=== PATIENT | female | born 1955 | race Caucasian/White ===

== ENCOUNTER 2020-12-11 07:57 | Outpatient (CLI) | payer OTHER ==
[2020-12-11 08:38] LABS: ALBUMIN 3.6 g/dL (3.4-4.8); CALCIUM 9.1 mg/dL (8.4-11.0); CREATININE 0.99 mg/dL (0.55-1.30); POTASSIUM 4.5 mmol/L (3.5-5.1); TOTAL BILIRUBIN 0.4 mg/dL (0.0-1.0); URIC ACID 4.2 mg/dL (2.4-7.0)
[2020-12-11 08:38] LABS: BILIRUBIN,URINE NEGATIVE (NEGATIVE); BLOOD, URINE NEGATIVE (NEGATIVE); CLARITY/URINE CLEAR (CLEAR); COLOR,URINE YELLOW (YELLOW); GLUCOSE,URINE NEGATIVE (NEGATIVE); KETONES,URINE NEGATIVE (NEGATIVE); LEUKOCYTE ESTERASE ,URINE NEGATIVE (NEGATIVE); NITRITE, URINE NEGATIVE (NEGATIVE); PROTEIN URINE NEGATIVE (NEGATIVE); UROBILINOGEN,URINE 0.2 (0.2-1.0)
[2020-12-11 08:52] LABS: BASOPHILS % (AUTO) 1.4 % (0.0-2.0); EOSINOPHILS # (AUTO) 0.1 K/uL (0.0-0.4); EOSINOPHILS % (AUTO) 2.5 % (0.0-4.0); HEMATOCRIT 38.6 % (36-48); HEMOGLOBIN 13.5 g/dL (12.0-16.0); LYMPHOCYTES # (AUTO) 0.8 K/uL (1.0-5.5); LYMPHOCYTES % (AUTO) 26.3 % (20.5-51.5); MEAN CORPUSCULAR HEMOGLOBIN 32 pg (27-31); MEAN CORPUSCULAR HGB CONC 35 % (32-36); MEAN CORPUSCULAR VOLUME 90 fL (79.0-98.0); MONOCYTES # (AUTO) 0.3 K/uL (0.0-1.0); MONOCYTES % (AUTO) 8.3 % (1.7-9.3); NEUTROPHILS # (AUTO) 1.8 K/uL (1.8-7.7); NEUTROPHILS % (AUTO) 61.5 % (40.0-70.0); PLATELET COUNT (AUTO) 235 K/uL (130-430); RED BLOOD CELL COUNT(AUTO) 4.27 MIL/uL (4.2-6.2); RED CELL DISTRIBUTION WIDTH 12.4 % (9.0-15.0)
[2020-12-11 09:20] LABS: THYROID STIMULATING HORMONE 6.42 uIu/mL (0.36-3.74)
[2020-12-12 10:06] LABS: HEMOGLOBIN A1C 5.4 % (4.8-5.6)
== END 2020-12-11 19:02 | disposition home or self-care (01) ==
LOC: SLB 07:57
PROVIDERS: ATTEND Internal Medicine
DX: I10 Essential (primary) hypertension (principal); E78.5 Hyperlipidemia, unspecified; E56.8 Deficiency of other vitamins
CPT/HCPCS: 36415; 80053; 80061; 81003; 82306; 82607; 83036; 84443; 84550; 85025

== ENCOUNTER 2021-02-19 12:24 | Outpatient (CLI) | payer OTHER | END 2021-02-19 20:11 | disposition home or self-care (01) | LOC: SMI 12:24 | PROVIDERS: ATTEND Internal Medicine | DX: M47.812 Spondylosis without myelopathy or radiculopathy, cervical region (principal); M50.31 Other cervical disc degeneration, high cervical region; M48.02 Spinal stenosis, cervical region; M89.38 Hypertrophy of bone, other site | CPT/HCPCS: 72141 ==

== ENCOUNTER → 2021-03-10 | Outpatient (CLI) | payer OTHER ==
[2021-03-10 09:50] LABS: BASOPHILS % (AUTO) 1.2 % (0.0-2.0); EOSINOPHILS # (AUTO) 0.2 K/uL (0.0-0.4); EOSINOPHILS % (AUTO) 6.7 % (0.0-4.0); HEMATOCRIT 37.1 % (36-48); HEMOGLOBIN 12.9 g/dL (12.0-16.0); LYMPHOCYTES # (AUTO) 0.8 K/uL (1.0-5.5); LYMPHOCYTES % (AUTO) 31.4 % (20.5-51.5); MEAN CORPUSCULAR HEMOGLOBIN 31 pg (27-31); MEAN CORPUSCULAR HGB CONC 35 % (32-36); MEAN CORPUSCULAR VOLUME 88 fL (79.0-98.0); MONOCYTES # (AUTO) 0.2 K/uL (0.0-1.0); NEUTROPHILS # (AUTO) 1.4 K/uL (1.8-7.7); NEUTROPHILS % (AUTO) 53.7 % (40.0-70.0); PLATELET COUNT (AUTO) 237 K/uL (130-430); RED BLOOD CELL COUNT(AUTO) 4.22 MIL/uL (4.2-6.2); RED CELL DISTRIBUTION WIDTH 11.8 % (9.0-15.0); WHITE BLOOD COUNT (AUTO) 2.7 K/uL (4.8-10.8)
[2021-03-10 11:26] LABS: CALCIUM 8.8 mg/dL (8.4-11.0); CREATININE 0.92 mg/dL (0.55-1.30); POTASSIUM 4.3 mmol/L (3.5-5.1); THYROID STIMULATING HORMONE 0.04 uIu/mL (0.34-4.82)
== END | disposition home or self-care (01) ==
LOC: SLB 08:17
PROVIDERS: ATTEND Internal Medicine
DX: E03.9 Hypothyroidism, unspecified (principal); E78.5 Hyperlipidemia, unspecified
CPT/HCPCS: 36415; 80048; 80061; 84443; 85025

== ENCOUNTER 2021-03-12 16:02 | Outpatient (CLI) | payer OTHER ==
[2021-03-12 19:47] LABS: BILIRUBIN,URINE NEGATIVE (NEGATIVE); BLOOD, URINE NEGATIVE (NEGATIVE); CLARITY/URINE CLEAR (CLEAR); GLUCOSE,URINE NEGATIVE (NEGATIVE); KETONES,URINE NEGATIVE (NEGATIVE); LEUKOCYTE ESTERASE ,URINE NEGATIVE (NEGATIVE); NITRITE, URINE NEGATIVE (NEGATIVE); PROTEIN URINE NEGATIVE (NEGATIVE); UROBILINOGEN,URINE 0.2 (0.2-1.0)
[2021-03-12 20:06] LABS: COLOR,URINE STRAW (YELLOW)
== END 2021-03-12 21:37 | disposition home or self-care (01) ==
LOC: SLB 16:02
PROVIDERS: ATTEND Internal Medicine
DX: N39.0 Urinary tract infection, site not specified (principal)
CPT/HCPCS: 81003; 87086

== ENCOUNTER 2021-05-07 07:10 | Day surgery (SDC) | payer OTHER, SELFPAY ==
[~2021-05-07] VITALS: Ht 152.4 cm; Wt 57.2 kg
[2021-05-07] MEDS ORDERED: MIDAZOLAM HCL 5 MG/5 ML VIAL ONE (07:49)
[2021-05-07] MEDS ORDERED: fentaNYL CITRATE/PF 100 MCG/2 ML AMP ONE (07:49)
[2021-05-07 12:50] VITALS: BP_SYST 107
== END 2021-05-07 12:48 | disposition home or self-care (01) ==
LOC: SDS 07:10 → SMU 07:10 → SDS 12:48
PROVIDERS: ATTEND Internal Medicine
DX: Z12.11 Encounter for screening for malignant neoplasm of colon (principal); K64.8 Other hemorrhoids; Z20.822 Contact with and (suspected) exposure to COVID-19
CPT/HCPCS: 36415; 45378; 87426; 99152; G0378; J2250; J3010; U0003

== ENCOUNTER 2021-05-25 08:17 | Outpatient (CLI) | payer OTHER ==
[2021-05-25 09:49] LABS: BASOPHILS % (AUTO) 1.3 % (0.0-2.0); EOSINOPHILS # (AUTO) 0.2 K/uL (0.0-0.4); EOSINOPHILS % (AUTO) 4.5 % (0.0-4.0); HEMATOCRIT 41.2 % (36-48); HEMOGLOBIN 13.9 g/dL (12.0-16.0); LYMPHOCYTES % (AUTO) 26.3 % (20.5-51.5); MEAN CORPUSCULAR HEMOGLOBIN 30 pg (27-31); MEAN CORPUSCULAR HGB CONC 34 % (32-36); MEAN CORPUSCULAR VOLUME 88 fL (79.0-98.0); MONOCYTES # (AUTO) 0.2 K/uL (0.0-1.0); MONOCYTES % (AUTO) 6.4 % (1.7-9.3); NEUTROPHILS # (AUTO) 2.2 K/uL (1.8-7.7); NEUTROPHILS % (AUTO) 61.5 % (40.0-70.0); PLATELET COUNT (AUTO) 246 K/uL (130-430); RED BLOOD CELL COUNT(AUTO) 4.66 MIL/uL (4.2-6.2); RED CELL DISTRIBUTION WIDTH 12.8 % (9.0-15.0); WHITE BLOOD COUNT (AUTO) 3.7 K/uL (4.8-10.8)
[2021-05-25 10:47] LABS: ALBUMIN 3.9 g/dL (3.4-4.8); CALCIUM 9.6 mg/dL (8.4-11.0); CREATININE 0.84 mg/dL (0.55-1.30); POTASSIUM 4.4 mmol/L (3.5-5.1); THYROID STIMULATING HORMONE 4.75 uIu/mL (0.36-3.74); TOTAL BILIRUBIN 0.2 mg/dL (0.0-1.0)
== END 2021-05-25 21:03 | disposition home or self-care (01) ==
LOC: SLB 08:17
PROVIDERS: ATTEND Internal Medicine
DX: E03.9 Hypothyroidism, unspecified (principal); E78.5 Hyperlipidemia, unspecified; I10 Essential (primary) hypertension; E56.9 Vitamin deficiency, unspecified
CPT/HCPCS: 36415; 80053; 80061; 82306; 82607; 84443; 85025

== ENCOUNTER 2021-08-30 08:11 | Outpatient (CLI) | payer OTHER ==
[2021-08-30 09:18] LABS: FREE T4 (FREE THYROXINE) 1.2 ng/dl (0.8-1.5); THYROID STIMULATING HORMONE 1.79 uIu/mL (0.36-3.74)
== END 2021-08-30 19:28 | disposition home or self-care (01) ==
LOC: SLB 08:11
PROVIDERS: ATTEND Internal Medicine
DX: E78.5 Hyperlipidemia, unspecified (principal); E03.9 Hypothyroidism, unspecified; E55.9 Vitamin D deficiency, unspecified
CPT/HCPCS: 36415; 80061; 82306; 84439; 84443; 86376

== ENCOUNTER 2021-10-01 11:49 | Outpatient (CLI) | payer OTHER | END 2021-10-01 19:54 | disposition home or self-care (01) | LOC: SCA 11:49 | PROVIDERS: ATTEND Internal Medicine | DX: I51.7 Cardiomegaly (principal); R94.31 Abnormal electrocardiogram [ECG] [EKG]; R55 Syncope and collapse | CPT/HCPCS: 93005; 93306 ==

== ENCOUNTER 2021-12-25 08:52 | Outpatient (CLI) | payer OTHER ==
[2021-12-25 10:01] LABS: BASOPHILS % (AUTO) 1.1 % (0.0-2.0); EOSINOPHILS # (AUTO) 0.1 K/uL (0.0-0.4); EOSINOPHILS % (AUTO) 2.3 % (0.0-4.0); HEMATOCRIT 41.8 % (36-48); HEMOGLOBIN 13.9 g/dL (12.0-16.0); LYMPHOCYTES # (AUTO) 0.9 K/uL (1.0-5.5); LYMPHOCYTES % (AUTO) 30.2 % (20.5-51.5); MEAN CORPUSCULAR HEMOGLOBIN 30 pg (27-31); MEAN CORPUSCULAR HGB CONC 33 % (32-36); MEAN CORPUSCULAR VOLUME 90 fL (79.0-98.0); MONOCYTES # (AUTO) 0.2 K/uL (0.0-1.0); MONOCYTES % (AUTO) 7.6 % (1.7-9.3); NEUTROPHILS # (AUTO) 1.7 K/uL (1.8-7.7); NEUTROPHILS % (AUTO) 58.8 % (40.0-70.0); PLATELET COUNT (AUTO) 269 K/uL (130-430); RED BLOOD CELL COUNT(AUTO) 4.66 MIL/uL (4.2-6.2); RED CELL DISTRIBUTION WIDTH 12.9 % (9.0-15.0)
[2021-12-25 10:07] LABS: WHITE BLOOD COUNT (AUTO) 2.9 K/uL (4.8-10.8)
[2021-12-25 10:21] LABS: BILIRUBIN,URINE NEGATIVE (NEGATIVE); BLOOD, URINE NEGATIVE (NEGATIVE); CLARITY/URINE CLEAR (CLEAR); COLOR,URINE YELLOW (YELLOW); GLUCOSE,URINE NEGATIVE (NEGATIVE); KETONES,URINE NEGATIVE (NEGATIVE); LEUKOCYTE ESTERASE ,URINE NEGATIVE (NEGATIVE); NITRITE, URINE NEGATIVE (NEGATIVE); PH,URINE 8.5 (5.0-8.0); PROTEIN URINE NEGATIVE (NEGATIVE); UROBILINOGEN,URINE 0.2 (0.2-1.0)
[2021-12-25 10:23] LABS: CREATININE 0.96 mg/dL (0.55-1.30); POTASSIUM 4.2 mmol/L (3.5-5.1); THYROID STIMULATING HORMONE 2.48 uIu/mL (0.34-4.82); TOTAL BILIRUBIN 0.4 mg/dL (0.0-1.0)
[2021-12-26 08:06] LABS: HEMOGLOBIN A1C 5.5 % (4.8-5.6)
== END 2021-12-25 17:36 | disposition home or self-care (01) ==
LOC: SLB 08:52
PROVIDERS: ATTEND Internal Medicine
DX: Z12.31 Encounter for screening mammogram for malignant neoplasm of breast (principal); I10 Essential (primary) hypertension; E03.9 Hypothyroidism, unspecified; R73.9 Hyperglycemia, unspecified; E55.9 Vitamin D deficiency, unspecified; E56.9 Vitamin deficiency, unspecified
CPT/HCPCS: 36415; 77067; 80053; 80061; 81003; 82306; 82607; 83036; 83735; 84443; 85025

== ENCOUNTER 2022-01-08 09:39 | Outpatient (CLI) | payer OTHER | END 2022-01-08 20:08 | disposition home or self-care (01) | LOC: SUS 09:39 | PROVIDERS: ATTEND Internal Medicine | DX: R94.4 Abnormal results of kidney function studies (principal) | CPT/HCPCS: 76770 ==

== ENCOUNTER → 2022-04-19 | Outpatient (CLI) | payer OTHER ==
[2022-04-19 09:22] LABS: BILIRUBIN,URINE NEGATIVE (NEGATIVE); BLOOD, URINE NEGATIVE (NEGATIVE); CLARITY/URINE CLEAR (CLEAR); COLOR,URINE YELLOW (YELLOW); GLUCOSE,URINE NEGATIVE (NEGATIVE); KETONES,URINE NEGATIVE (NEGATIVE); LEUKOCYTE ESTERASE ,URINE NEGATIVE (NEGATIVE); NITRITE, URINE NEGATIVE (NEGATIVE); PROTEIN URINE NEGATIVE (NEGATIVE); UROBILINOGEN,URINE 0.2 (0.2-1.0)
[2022-04-19 09:51] LABS: ALBUMIN 3.9 g/dL (3.4-4.8); CALCIUM 9.5 mg/dL (8.4-11.0); CREATININE 0.76 mg/dL (0.55-1.30); FREE T4 (FREE THYROXINE) 1.1 ng/dL (0.6-1.6); THYROID STIMULATING HORMONE 2.73 uIu/mL (0.34-4.82); TOTAL BILIRUBIN 0.4 mg/dL (0.0-1.0)
[2022-04-19 10:23] LABS: BASOPHILS % (AUTO) 1.4 % (0.0-2.0); EOSINOPHILS # (AUTO) 0.2 K/uL (0.0-0.4); EOSINOPHILS % (AUTO) 5.3 % (0.0-4.0); HEMATOCRIT 38.1 % (36-48); HEMOGLOBIN 13.1 g/dL (12.0-16.0); LYMPHOCYTES # (AUTO) 1.1 K/uL (1.0-5.5); LYMPHOCYTES % (AUTO) 36.3 % (20.5-51.5); MEAN CORPUSCULAR HEMOGLOBIN 31 pg (27-31); MEAN CORPUSCULAR HGB CONC 34 % (32-36); MEAN CORPUSCULAR VOLUME 90 fL (79.0-98.0); MONOCYTES # (AUTO) 0.2 K/uL (0.0-1.0); MONOCYTES % (AUTO) 6.9 % (1.7-9.3); NEUTROPHILS # (AUTO) 1.5 K/uL (1.8-7.7); NEUTROPHILS % (AUTO) 50.1 % (40.0-70.0); PLATELET COUNT (AUTO) 261 K/uL (130-430); RED BLOOD CELL COUNT(AUTO) 4.23 MIL/uL (4.2-6.2); RED CELL DISTRIBUTION WIDTH 12.3 % (9.0-15.0)
== END | disposition home or self-care (01) ==
LOC: SLB 08:29
PROVIDERS: ATTEND Internal Medicine
DX: Z00.00 Encounter for general adult medical examination without abnormal findings (principal); I10 Essential (primary) hypertension; E78.5 Hyperlipidemia, unspecified; R73.9 Hyperglycemia, unspecified; E03.9 Hypothyroidism, unspecified
CPT/HCPCS: 36415; 80053; 80061; 81003; 82306; 83037; 83735; 84439; 84443; 85025

== ENCOUNTER 2022-08-29 05:13 | Emergency (ER) | payer OTHER ==
[~2022-08-29] VITALS: Ht 152.4 cm; Wt 59.9 kg
[2022-08-29 05:23] VITALS: BP_SYST 138
[2022-08-29] MEDS ORDERED: KETOROLAC TROMETHAMINE 60 MG/2 ML VIAL IM ONE (06:30)
[2022-08-29] MEDS ORDERED: ONDANSETRON 4 MG ODT TAB PO ONE (06:30)
[2022-08-29 07:09] LABS: BASOPHILS % (AUTO) 0.8 % (0.0-2.0); EOSINOPHILS # (AUTO) 0.2 K/uL (0.0-0.4); EOSINOPHILS % (AUTO) 3.7 % (0.0-4.0); HEMATOCRIT 41.2 % (36-48); HEMOGLOBIN 14.1 g/dL (12.0-16.0); LYMPHOCYTES % (AUTO) 25.1 % (20.5-51.5); MEAN CORPUSCULAR HEMOGLOBIN 31 pg (27-31); MEAN CORPUSCULAR HGB CONC 34 % (32-36); MEAN CORPUSCULAR VOLUME 91 fL (79.0-98.0); MONOCYTES # (AUTO) 0.3 K/uL (0.0-1.0); MONOCYTES % (AUTO) 6.5 % (1.7-9.3); NEUTROPHILS # (AUTO) 2.6 K/uL (1.8-7.7); NEUTROPHILS % (AUTO) 63.9 % (40.0-70.0); PLATELET COUNT (AUTO) 255 K/uL (130-430); RED BLOOD CELL COUNT(AUTO) 4.52 MIL/uL (4.2-6.2); RED CELL DISTRIBUTION WIDTH 12.5 % (9.0-15.0); WHITE BLOOD COUNT (AUTO) 4.1 K/uL (4.8-10.8)
[2022-08-29 07:22] LABS: ALANINE AMINOTRANSFERASE 26 U/L (12-78); ALBUMIN 4.1 g/dL (3.4-4.8); ANION GAP 5 (5-15); ASPARTATE AMINOTRANSFERASE 25 U/L (10-37); CALCIUM 9.1 mg/dL (8.4-11.0); CHLORIDE 102 mmol/L (98-107); GFR AFRICAN AMERICAN 81 mL/min (>90); GLUCOSE 108 mg/dL (70-99); TOTAL BILIRUBIN 0.4 mg/dL (0.0-1.0); UREA NITROGEN, BLOOD 11 mg/dL (8-21)
[2022-08-29 07:25] LABS: C-REACTIVE PROTEIN QUANT < 0.2 mg/dL (0-0.5)
[2022-08-29 07:34] LABS: ERYTHROCYTE SEDIMENTATION RATE 8 MM/HR (0-20)
[2022-08-29 07:37] VITALS: BP_SYST 138
[2022-08-29] MEDS ORDERED: IBUP-1969 PO (09:18)
[2022-08-29] MEDS ORDERED: TRAM50TA2 PO (09:18)
== END 2022-08-29 10:00 | disposition home or self-care (01) ==
LOC: SED 05:13
DX: R51.9 Headache, unspecified (principal); M54.2 Cervicalgia; Z88.2 Allergy status to sulfonamides; Z88.5 Allergy status to narcotic agent; Z88.6 Allergy status to analgesic agent; Z88.8 Allergy status to other drugs, medicaments and biological substances; Z79.899 Other long term (current) drug therapy
CPT/HCPCS: 99285; 70450; 80053; 85025; 85651; 86140; 36415; 76376; 96372; Q0162; J1885

== ENCOUNTER 2022-08-31 10:10 | Inpatient (IN) | payer OTHER ==
[~2022-08-31] VITALS: Ht 167.6 cm; Wt 59.9 kg
[~2022-08-31 10:10] MED LIST: IBUP-1969 PO; TRAM50TA2 PO
[2022-08-31 10:51] VITALS: BP_SYST 176
[2022-08-31] MEDS ORDERED: ONDANSETRON 4 MG ODT TAB PO ONE ×2 (11:00→12:00)
[2022-08-31 11:21] LABS: BASOPHILS % (AUTO) 0.2 % (0.0-2.0); EOSINOPHILS % (AUTO) 0.1 % (0.0-4.0); HEMATOCRIT 38.6 % (36-48); HEMOGLOBIN 13.5 g/dL (12.0-16.0); LYMPHOCYTES # (AUTO) 0.8 K/uL (1.0-5.5); LYMPHOCYTES % (AUTO) 12.5 % (20.5-51.5); MEAN CORPUSCULAR HEMOGLOBIN 31 pg (27-31); MEAN CORPUSCULAR HGB CONC 35 % (32-36); MEAN CORPUSCULAR VOLUME 89 fL (79.0-98.0); MONOCYTES # (AUTO) 0.2 K/uL (0.0-1.0); MONOCYTES % (AUTO) 3.3 % (1.7-9.3); NEUTROPHILS # (AUTO) 5.6 K/uL (1.8-7.7); NEUTROPHILS % (AUTO) 83.9 % (40.0-70.0); PLATELET COUNT (AUTO) 252 K/uL (130-430); RED BLOOD CELL COUNT(AUTO) 4.35 MIL/uL (4.2-6.2); RED CELL DISTRIBUTION WIDTH 12.2 % (9.0-15.0); WHITE BLOOD COUNT (AUTO) 6.7 K/uL (4.8-10.8)
[2022-08-31 11:42] LABS: ANION GAP 8 (5-15); CALCIUM 9.1 mg/dL (8.4-11.0); CHLORIDE 89 mmol/L (98-107); CREATININE 0.72 mg/dL (0.55-1.30); GFR AFRICAN AMERICAN 105 mL/min (>90); GLUCOSE 116 mg/dL (70-99); UREA NITROGEN, BLOOD 7 mg/dL (8-21)
[2022-08-31 11:54] LABS: ALANINE AMINOTRANSFERASE 13 U/L (12-78); ALBUMIN 4.3 g/dL (3.4-4.8); AMYLASE 53 U/L (0-100); ASPARTATE AMINOTRANSFERASE 22 U/L (10-37); LACTATE DEHYDROGENASE 211 U/L (81-234); LIPASE 90 U/L (73-393); TOTAL BILIRUBIN 0.6 mg/dL (0.0-1.0)
[2022-08-31 11:59] LABS: C-REACTIVE PROTEIN QUANT < 0.2 mg/dL (0-0.5)
--- NOTE | 2022-08-31 12:07 | NUR ---
Patient arrived to ED 6 for c/o vertigo and headache and vomiting three times. Yesterday she had nausea "all the time." Patient was here 3 days ago for dizziness and headache. Alert and oriented x4. Respiration even and unlabored. No shortness of breath. Will continue to monitor.
[2022-08-31] MEDS ORDERED: DIPHENHYDRAMINE INJ 50 MG/ML VIAL IM ONE (12:15)
[2022-08-31 12:29] LABS: ACETONE, SERUM NEGATIVE (NEGATIVE)
[2022-08-31] MEDS ORDERED: NACL 0.9% 1,000 ML IV ONE (12:45)
[2022-08-31] MEDS ORDERED: METOCLOPRAMIDE HCL 10 MG/2 ML VIAL IVP ONE (12:45)
[2022-08-31 12:50] LABS: BILIRUBIN,URINE NEGATIVE (NEGATIVE); CLARITY/URINE TURBID (CLEAR); COLOR,URINE YELLOW (YELLOW); GLUCOSE,URINE NEGATIVE (NEGATIVE); KETONES,URINE NEGATIVE (NEGATIVE); LEUKOCYTE ESTERASE ,URINE NEGATIVE (NEGATIVE); NITRITE, URINE NEGATIVE (NEGATIVE); PROTEIN URINE 1+ (NEGATIVE); UROBILINOGEN,URINE 0.2 (0.2-1.0)
[2022-08-31 12:52] LABS: BLOOD, URINE TRACE (NEGATIVE)
[2022-08-31 13:01] LABS: BACTERIA,URINE FEW /HPF (None Seen); RBC,URINE 0-3 /HPF (0-3); WBC,URINE 0-3 /HPF (0-3)
[2022-08-31 13:02] LABS: URINE AMORPHOUS PHOSPHATES 3+ /HPF (None Seen)
[2022-08-31 13:12] LABS: ACETONE, SERUM NEGATIVE (NEGATIVE)
--- NOTE | 2022-08-31 13:31 | NUR ---
Admit bed requested Patient will be admitted to care of . Admitted to Telemetry unit. Diagnosis Intractable Vomiting and Hyponatremia Inpatient (Yes or No) Yes Observation (Yes or No) No Orientation concerns or request close to nursing station (Yes or No) No Covid Status Negative On vent or bipap N/A Isolation requirements No Needs a sitter No From Home (Yes or if No enter name of facility) Yes Requires Dialysis (Yes or No) No Med Rec Completed (Yes of No) Yes
[2022-08-31 14:03] LABS: CALCIUM 9.1 mg/dL (8.4-11.0); CREATININE 0.74 mg/dL (0.55-1.30)
[2022-08-31] MEDS ORDERED: traMADol HCL HCL 50 MG TABLET (ULTRAM) PO PRN (17:00)
[2022-08-31] MEDS ORDERED: METOCLOPRAMIDE HCL 10 MG/2 ML VIAL IVP PRN (17:00)
[2022-08-31] MEDS ORDERED: ONDANSETRON HCL 4 MG/2 ML VIAL IVP PRN (17:00)
[2022-08-31 17:08] VITALS: BP_SYST 133
[2022-08-31 17:09] VITALS: BP_SYST 133
--- NOTE | 2022-08-31 17:10 | NUR ---
Report given to ADRY Rebolledo for continuity of care. Patient in stable condition.
[2022-08-31] MEDS: NACL 0.9% 1,000 ML IV SCH (17:18)
--- NOTE | 2022-08-31 17:21 | NUR ---
Patient arrived to room 111A for c/o nausea vomiting and vertigo. She is not vomiting or having nausea right now. She is alert and oriented x4. No deficits noted. Respiration even and unlabored. No c/o pain. Patient is able to rest. IV noted on right forearm. Vital signs stable. Will continue to monitor. Call light within reach.
--- NOTE | 2022-08-31 17:27 | NUR ---
Dr. kincaid at bedside.
--- NOTE | 2022-08-31 17:30 | NUR ---
ADMIT TO UNIT PATIENT IS AOX4. AMBULATORY WITH STEADY GAIT. PATIENT'S BREATHING IS EVEN AND NONLABORED, ON ROOM AIR. NO SS OF DISTRESS NOTED. PATIENT DENIES PAIN. NO SS OF NAUSEA AND/ EMESIS AT THIS TIME. IV PATENT. NO SS OF INFILTRATION NOTED. VITAL SIGNS OBTAINED AT THIS TIME. PATIENT ORIENTED TO ROOM AND USE OF CALL LIGHT. DR. TYSON AT BEDSIDE. PATIENT STABLE. BED IS LOCKED, ALARM ON, AND AT LOWEST POSITION. CALL LIGHT WITHIN REACH.
[2022-08-31] MEDS ORDERED: SODIUM CHLORIDE 500 MG TABLET PO ONE (17:45)
[2022-08-31] MEDS ORDERED: cloNIDine HCL 0.1 MG TABLET PO PRN (18:15)
--- NOTE | 2022-08-31 18:51 | NUR ---
CLOSING NOTES PATIENT IS EATING DINNER, FULL LIQUIDS. TOLERATING WELL. DENIES ANY NAUSEA OR EMESIS AT THIS TIME. DENIES PAIN. BREATHING IS EVEN AND NONLABORED, ON ROOM AIR. NO SOB NOTED. NO SS OF DISTRESS NOTED. PATIENT IS STABLE. ALL NEEDS MET. IV PATENT. ALL SAFETY PRECAUTIONS IN PLACE AND CALL LIGHT WITHIN REACH.
[2022-08-31 20:00] VITALS: BP_SYST 118; BP_SYST 125
--- NOTE | 2022-08-31 20:00 | NUR ---
OPENING NOTES PATIENT IS LYING IN BED AXO 4 WITH NO S/S OF DISTRESS OR DISCOMFORT. BREATHING IS EQUAL AND UNLABORED ON RA. SAFETY CHECKS ARE DONE AND CALL LIGHT WITH IN REACH.
[2022-08-31] MEDS: SODIUM CHLORIDE 500 MG TABLET PO SCH (21:02)
[2022-08-31] MEDS: FAMOTIDINE PF 20 MG/2 ML VIAL IVP SCH (21:38)
[2022-09-01 00:05] VITALS: BP_SYST 114
--- NOTE | 2022-09-01 03:25 | NUR ---
ROUNDS PATIENT IS ASLEEP IN BED WITH NO S/S OF DISTRESS OR DISCOMFORT. BREATHING IS EQUAL AND UNLABORED. IVF ARE RUNNING. SAFETY CHECKS ARE DONE. WILL CONTINUE TO MONITOR.
[2022-09-01] MEDS: NACL 0.9% 1,000 ML IV SCH ×2 (03:44→14:08)
--- NOTE | 2022-09-01 04:55 | NUR ---
ROUNDS PATIENT IS LYING IN BED AXO4 WITH NO S/S OF DISTRESS OR DISCOMFORT. PATIENT STATED THAT SHE STARTED FEELING A HEADACHE AROUND 0330 THIS MORNING. PATIENT SAID SHE FEELS BETTER NOW BUT WANTED TO MAKE SURE IT IS REITERATED THAT SHE HERE FOR SAID HEADACHE.
[2022-09-01 06:09] LABS: BASOPHILS % (AUTO) 0.5 % (0.0-2.0); EOSINOPHILS % (AUTO) 0.6 % (0.0-4.0); HEMATOCRIT 34.5 % (36-48); LYMPHOCYTES # (AUTO) 1.4 K/uL (1.0-5.5); LYMPHOCYTES % (AUTO) 36.6 % (20.5-51.5); MEAN CORPUSCULAR HEMOGLOBIN 31 pg (27-31); MEAN CORPUSCULAR HGB CONC 35 % (32-36); MEAN CORPUSCULAR VOLUME 90 fL (79.0-98.0); MONOCYTES # (AUTO) 0.4 K/uL (0.0-1.0); MONOCYTES % (AUTO) 9.6 % (1.7-9.3); NEUTROPHILS # (AUTO) 2.1 K/uL (1.8-7.7); NEUTROPHILS % (AUTO) 52.7 % (40.0-70.0); PLATELET COUNT (AUTO) 243 K/uL (130-430); RED BLOOD CELL COUNT(AUTO) 3.85 MIL/uL (4.2-6.2); RED CELL DISTRIBUTION WIDTH 12.5 % (9.0-15.0)
--- NOTE | 2022-09-01 06:41 | NUR ---
CLOSING NOTES PATIENT IS LYING IN BED AXO 4 WITH NO S/S OF DISTRESS OR DISCOMFORT. BREATHING IS EQUAL AND UNLABORED ON RA. PATIENT HAS SLEPT THROUGHOUT THE NIGHT. MRI PRE CHECK IS DONE. ALL NEEDS ARE MET AT THIS TIME. SAFETY CHECKS ARE DONE AND CALL LIGHT WITH IN REACH.
[2022-09-01 06:47] LABS: ALBUMIN 3.2 g/dL (3.4-4.8); CALCIUM 8.2 mg/dL (8.4-11.0); CREATININE 0.79 mg/dL (0.55-1.30); FREE T4 (FREE THYROXINE) 1.1 ng/dL (0.6-1.6); THYROID STIMULATING HORMONE 3.73 uIu/mL (0.34-4.82); TOTAL BILIRUBIN 0.4 mg/dL (0.0-1.0)
[2022-09-01 07:46] VITALS: BP_SYST 164
--- NOTE | 2022-09-01 08:00 | NUR ---
Initial notes Received patient awake in bed AAOx4,no c/opain/SOB , respiration unlabored,no signs of distress noted. IV to right forearm patent,no signs of distress noted. Safety precaution secured,bed in low position and call light w/in reached
[2022-09-01] MEDS: SODIUM CHLORIDE 500 MG TABLET PO SCH ×2 (08:13→15:49)
--- NOTE | 2022-09-01 08:15 | NUR ---
Medication administration: Patient found in bed, eating breakfast. No s/s of grimace or distress. Non labored breathing. Administered medication, tolerated well. Call light within reach, bed at lowest position and locked. Will continue to monitor throughout shift.
[2022-09-01] MEDS: FAMOTIDINE PF 20 MG/2 ML VIAL IVP SCH ×2 (08:16→22:21)
[2022-09-01 13:51] VITALS: BP_SYST 137
[2022-09-01] MEDS ORDERED: PEG 400/HYPROMELLOSE/GLYCERIN 15 ML DROPS OP ONE (17:30)
--- NOTE | 2022-09-01 18:16 | NUR ---
Closing Patient resting in bed, no signs of distress noted. IV to right forearm patent, safety precaution secured, bed in low position and call light w/in reached, will endorse
--- NOTE | 2022-09-01 18:28 | NUR ---
CONSULTATION: REASON FOR CONSULT: HYPONATREMIA CONSULTING PHYSICIAN: JEISON ORDERED BY: JAH REZA IS AWARE AND ALREADY SEEN PT
[2022-09-01 18:56] VITALS: BP_SYST 151
[2022-09-01 20:30] VITALS: BP_SYST 144
--- NOTE | 2022-09-01 21:35 | NUR ---
patient awake assist out of bed to rest room ambulates steady gait no SOB assist back to bed procedures explained call piña given to patient .
[2022-09-01] MEDS: PEG 400/HYPROMELLOSE/GLYCERIN 15 ML DROPS OP SCH (22:24)
--- NOTE | 2022-09-02 | NUR ---
patient is Resting this hour denies any nausea or GI upset this hour continue to monitor .
[2022-09-02 00:30] VITALS: BP_SYST 137
--- NOTE | 2022-09-02 03:49 | NUR ---
Hourly Rounding patient Resting is verbally Responsive chest movement symmetrical call piña given to patient / .
[2022-09-02 05:26] LABS: EOSINOPHILS # (AUTO) 0.1 K/uL (0.0-0.4); EOSINOPHILS % (AUTO) 2.2 % (0.0-4.0); HEMATOCRIT 32.7 % (36-48); HEMOGLOBIN 11.7 g/dL (12.0-16.0); LYMPHOCYTES # (AUTO) 1.4 K/uL (1.0-5.5); LYMPHOCYTES % (AUTO) 35.6 % (20.5-51.5); MEAN CORPUSCULAR HEMOGLOBIN 32 pg (27-31); MEAN CORPUSCULAR HGB CONC 36 % (32-36); MEAN CORPUSCULAR VOLUME 90 fL (79.0-98.0); MONOCYTES # (AUTO) 0.4 K/uL (0.0-1.0); MONOCYTES % (AUTO) 9.1 % (1.7-9.3); NEUTROPHILS # (AUTO) 2.1 K/uL (1.8-7.7); NEUTROPHILS % (AUTO) 52.1 % (40.0-70.0); PLATELET COUNT (AUTO) 231 K/uL (130-430); RED BLOOD CELL COUNT(AUTO) 3.65 MIL/uL (4.2-6.2); RED CELL DISTRIBUTION WIDTH 12.5 % (9.0-15.0)
[2022-09-02 05:44] LABS: CALCIUM 8.2 mg/dL (8.4-11.0); CREATININE 0.86 mg/dL (0.55-1.30)
--- NOTE | 2022-09-02 08:00 | NUR ---
Initial notes Received patient awake in bed AAOx4,no c/o pain/SOB , respiration unlabored,no signs of distress noted. IV to right forearm patent,no signs of distress noted. Safety precaution secured,bed in low position and call light w/in reached
[2022-09-02 08:04] VITALS: BP_SYST 157
[2022-09-02] MEDS: PEG 400/HYPROMELLOSE/GLYCERIN 15 ML DROPS OP SCH ×3 (10:11→21:03)
[2022-09-02] MEDS: FAMOTIDINE PF 20 MG/2 ML VIAL IVP SCH ×2 (10:12→21:01)
[2022-09-02 13:20] VITALS: BP_SYST 168
[2022-09-02 16:22] VITALS: BP_SYST 143
--- NOTE | 2022-09-02 18:55 | NUR ---
Patient resting in bed no signs of distress will endorse
[2022-09-02 20:10] VITALS: BP_SYST 144
--- NOTE | 2022-09-02 20:10 | NUR ---
Opening notes Pt AAOx4, ambulates to bathroom. VSS. Call lgiht within reach. Bed low, locked, siderails up x2. To monitor.
--- NOTE | 2022-09-02 21:25 | NUR ---
IV RE-INSERTION: Pt complaining of pain to Rt. forearm IV site. DC'd IV, catheter tip intact. Restarted on R. wrist 22G, good blood return. Successful after x1 attempt. Pt tolerated well.
[2022-09-03] VITALS (8 sets, daily range): BP systolic 137–186
--- NOTE | 2022-09-03 02:00 | NUR ---
Rounds/BP med Pt c/o headache and shakiness on her legs/arms. BP elevated 186/82 HR 67. Catapres 0.1mg PO given as needed. Encouraged pt to take slow deep breaths. Will re-check within an hour. Call light within reach.
--- NOTE | 2022-09-03 04:49 | NUR ---
CONSULTATION PAGED REASON FOR CONSULTATION: DYSPNEA WAS CONSULT CALLED? Y PERSON WHO WAS NOTIFIED: TOBIN CONSULTING PHYSICIAN: JESUS ASSISTANT BOYS TRACK COACH SPECIALTY: CARDIO ASSISTANT BOYS TRACK COACH PHONE NUMBER: [phone] REQUESTING PHYSICIAN: JAH
[2022-09-03 05:49] LABS: CALCIUM 8.8 mg/dL (8.4-11.0); CREATININE 0.88 mg/dL (0.55-1.30)
[2022-09-03 06:02] LABS: BASOPHILS % (AUTO) 0.6 % (0.0-2.0); EOSINOPHILS # (AUTO) 0.1 K/uL (0.0-0.4); EOSINOPHILS % (AUTO) 1.6 % (0.0-4.0); HEMATOCRIT 35.1 % (36-48); HEMOGLOBIN 12.3 g/dL (12.0-16.0); LYMPHOCYTES # (AUTO) 1.5 K/uL (1.0-5.5); LYMPHOCYTES % (AUTO) 24.8 % (20.5-51.5); MEAN CORPUSCULAR HEMOGLOBIN 31 pg (27-31); MEAN CORPUSCULAR HGB CONC 35 % (32-36); MEAN CORPUSCULAR VOLUME 89 fL (79.0-98.0); MONOCYTES # (AUTO) 0.4 K/uL (0.0-1.0); MONOCYTES % (AUTO) 7.5 % (1.7-9.3); NEUTROPHILS # (AUTO) 3.9 K/uL (1.8-7.7); NEUTROPHILS % (AUTO) 65.5 % (40.0-70.0); PLATELET COUNT (AUTO) 243 K/uL (130-430); RED BLOOD CELL COUNT(AUTO) 3.93 MIL/uL (4.2-6.2); RED CELL DISTRIBUTION WIDTH 12.6 % (9.0-15.0)
[2022-09-03 07:11] LABS: ERYTHROCYTE SEDIMENTATION RATE 3 MM/HR (0-20)
--- NOTE | 2022-09-03 07:30 | NUR ---
Initial note: report received from Krystyna. patient is awake alert x4. Call light in reach. Bed in the lowest position and side rails x2 up. No pain or discomfort at this time. Will continue patient care.
[2022-09-03] MEDS ORDERED: PROPRANOLOL HCL 10 MG TABLET (INDERAL) PO SCH (09:00)
[2022-09-03] MEDS ORDERED: PROPRANOLOL HCL (INDERAL LA 60MG) PO SCH (09:00)
[2022-09-03] MEDS ORDERED: LOSARTAN POTASSIUM 50 MG TABLET (COZAAR) PO SCH (09:00)
[2022-09-03] MEDS: FAMOTIDINE PF 20 MG/2 ML VIAL IVP SCH (09:09)
[2022-09-03] MEDS: PEG 400/HYPROMELLOSE/GLYCERIN 15 ML DROPS OP SCH ×3 (09:10→17:00)
[2022-09-03] MEDS ORDERED: ACETAMINOPHEN 325 MG TABLET PO PRN (11:15)
--- NOTE | 2022-09-03 11:15 | NUR ---
Note: reported to Dr. Canales about the headache. New order received.
[2022-09-03] MEDS ORDERED: cloNIDine HCL 0.1 MG TABLET PO PRN (12:45)
--- NOTE | 2022-09-03 16:35 | NUR ---
PHYSICAL THERAPY CO-SIGN The Physical Therapy Progress Notes documented by Graphic Design Assistant have been reviewed. Reviewed/Co-Signed by: Carlos Delgadillo Documentation Done by:ROSALINE CARLSON Addendum: 09/03/22 at 1635 by Carlos Delgadillo PT Amended: Links added.
--- NOTE | 2022-09-03 17:44 | NUR ---
Note: D/C Patient Patient given medication reconciliation form and D/C instructions. Exit Care provided. Patient verbalized understanding. MD discussed with patient the results and treatment provided. Ambulatory with steady gait for discharge to home. Patient in stable condition, ID band removed. IV catheter removed, intact and dressing applied, no active bleeding. Rx of given. Patient educated on pain management. All belongings sent with patient. discharge instruction is given. Family is along with patient.
== END 2022-09-03 17:50 | disposition home or self-care (01) | DRG 699 ==
LOC: SED 10:10 → STU 13:27 → SMU 09-01 14:56
PROVIDERS: ADMIT Internal Medicine; ATTEND Internal Medicine
DX: N28.1 Cyst of kidney, acquired (principal); E87.1 Hypo-osmolality and hyponatremia; I10 Essential (primary) hypertension; E86.0 Dehydration; Z88.1 Allergy status to other antibiotic agents; Z88.5 Allergy status to narcotic agent; Z88.8 Allergy status to other drugs, medicaments and biological substances; Z79.899 Other long term (current) drug therapy
CPT/HCPCS: 36415; 70551; 71046-TC; 76770; 80048; 80053; 80061; 81000; 82009; 82150; 82533; 83605; 83615; 83690; 83880; 83930; 83935; 84302; 84439; 84443; 84484; 84999; 85025; 85651-TC; 86140; 93005; 96361; 96374; 96375; 97110-GP; 97116-GP; 97530-GP; 99285; G0378; J1200; J2765; J3490; J7030; Q0162

== ENCOUNTER 2022-10-12 06:33 | Emergency (ER) | payer OTHER ==
[~2022-10-12] VITALS: Ht 152.4 cm; Wt 59.0 kg
[2022-10-12 06:33] VITALS: BP_SYST 156; PULSE 74; RESP 17; TEMP 97.7; O2SAT 98
[~2022-10-12 06:33] MED LIST changes: -IBUP-1969 PO
--- NOTE | 2022-10-12 06:33 | NUR ---
Placed in room 2. Placed on rn cardiac rehab, blood pressure machine and pulse oximeter. To gown for exam. Side rails up.
--- NOTE | 2022-10-12 06:40 | NUR ---
PT BIB BY SELF C/O PALPITATIONS. PT STATES SHE WAS WOKEN UP FROM HER SLEEP AT 02:30 THIS MORNING FEELING PALPATATIONS. PT HAS A HX OF HTN AND HYPOTHYRODISM. PT OPENS EYES SPONTANEOUSLY. PT IS ALERT AND ORIENTED TO PERSON, PLACE, TIME, AND SITUATION. PT OBEYS COMMANDS. PT DENIES CHEST PAIN OR SOB. PT DENIES VISUAL OR AUDITORY ISSUES. PT DENIES ABOMINAL PAIN. PT DENIES URINARY OR BOWEL ISSUES. PT DENIES PAIN AT THIS TIME. PT IS IN ROOM 2 ON THE MONITOR PLAN OF CARE CONTINUES.
--- NOTE | 2022-10-12 06:41 | NUR ---
ER at bedside examining patient.
[2022-10-12] MEDS ORDERED: ALPRAZolam 0.25 MG TABLET PO ONE (06:45)
[2022-10-12 07:18] LABS: BASOPHILS % (AUTO) 0.4 % (0.0-2.0); EOSINOPHILS % (AUTO) 0.3 % (0.0-4.0); HEMATOCRIT 37.9 % (36-48); HEMOGLOBIN 12.9 g/dL (12.0-16.0); LYMPHOCYTES # (AUTO) 0.4 K/uL (1.0-5.5); LYMPHOCYTES % (AUTO) 7.4 % (20.5-51.5); MEAN CORPUSCULAR HEMOGLOBIN 31 pg (27-31); MEAN CORPUSCULAR HGB CONC 34 % (32-36); MEAN CORPUSCULAR VOLUME 92 fL (79.0-98.0); MONOCYTES # (AUTO) 0.3 K/uL (0.0-1.0); MONOCYTES % (AUTO) 6.7 % (1.7-9.3); NEUTROPHILS # (AUTO) 4.4 K/uL (1.8-7.7); NEUTROPHILS % (AUTO) 85.2 % (40.0-70.0); PLATELET COUNT (AUTO) 251 K/uL (130-430); RED BLOOD CELL COUNT(AUTO) 4.13 MIL/uL (4.2-6.2); RED CELL DISTRIBUTION WIDTH 12.7 % (9.0-15.0); WHITE BLOOD COUNT (AUTO) 5.2 K/uL (4.8-10.8)
[2022-10-12 07:32] LABS: ALBUMIN 3.8 g/dL (3.4-4.8); CALCIUM 8.9 mg/dL (8.4-11.0); CREATININE 0.88 mg/dL (0.55-1.30); TOTAL BILIRUBIN 0.7 mg/dL (0.0-1.0)
--- NOTE | 2022-10-12 07:32 | NUR ---
RECEIVED PT FROM PARVEZ ROSE. PT IS AAOX4. TELEMONITOR SHOWS NSR. DENIES PALPITATIONS AT THIS TIME. DENIES N/V/D/C AND PAIN. VSS. SIDERAILS UP X2.
[2022-10-12 07:36] LABS: INR 0.9 (0.8-1.2); PROTHROMBIN TIME 9.7 SECS (9.5-12.5)
[2022-10-12 07:39] LABS: FREE T4 (FREE THYROXINE) 1.5 ng/dl (0.8-1.5); THYROID STIMULATING HORMONE 2.43 uIu/mL (0.36-3.74)
[2022-10-12] MEDS ORDERED: ALPR0.25 PO (08:04)
--- NOTE | 2022-10-12 08:05 | NUR ---
DR. SOUZA AT BEDSIDE TO DISCUSS POC.
[2022-10-12 08:19] VITALS: BP_SYST 134; PULSE 64; RESP 18; TEMP 97.8; O2SAT 96
--- NOTE | 2022-10-12 08:24 | NUR ---
Patient given written and verbal discharge instructions and verbalizes understanding. ER MD discussed with patient the results and treatment provided. Patient in stable condition. ID arm band removed. Rx of XANAX given. Patient educated on pain management and to follow up with PMD. Pain Scale 0/10. Opportunity for questions provided and answered. Medication side effect fact sheet provided.
== END 2022-10-12 08:24 | disposition home or self-care (01) ==
LOC: SED 06:33
DX: R00.2 Palpitations (principal); I10 Essential (primary) hypertension; Z88.2 Allergy status to sulfonamides; Z88.5 Allergy status to narcotic agent; Z88.6 Allergy status to analgesic agent; Z88.8 Allergy status to other drugs, medicaments and biological substances; Z79.899 Other long term (current) drug therapy
CPT/HCPCS: 36415; 71045; 80053; 82550; 83880; 84439; 84443; 84484; 85025; 85610-TC; 85730-TC; 93005; 99285

== ENCOUNTER 2022-11-25 07:46 | Outpatient (CLI) | payer OTHER ==
[~2022-11-25 07:46] MED LIST changes: +ALPR0.25 PO
[2022-11-25 09:04] LABS: BASOPHILS % (AUTO) 0.4 % (0.0-2.0); EOSINOPHILS # (AUTO) 0.1 K/uL (0.0-0.4); EOSINOPHILS % (AUTO) 0.8 % (0.0-4.0); HEMATOCRIT 41.5 % (36-48); HEMOGLOBIN 13.8 g/dL (12.0-16.0); LYMPHOCYTES % (AUTO) 12.4 % (20.5-51.5); MEAN CORPUSCULAR HEMOGLOBIN 31 pg (27-31); MEAN CORPUSCULAR HGB CONC 33 % (32-36); MEAN CORPUSCULAR VOLUME 92 fL (79.0-98.0); MONOCYTES # (AUTO) 0.4 K/uL (0.0-1.0); MONOCYTES % (AUTO) 4.8 % (1.7-9.3); NEUTROPHILS # (AUTO) 6.5 K/uL (1.8-7.7); NEUTROPHILS % (AUTO) 81.6 % (40.0-70.0); PLATELET COUNT (AUTO) 303 K/uL (130-430); RED CELL DISTRIBUTION WIDTH 12.7 % (9.0-15.0); WHITE BLOOD COUNT (AUTO) 7.9 K/uL (4.8-10.8)
[2022-11-25 09:41] LABS: ALBUMIN 3.9 g/dL (3.4-4.8); CALCIUM 9.2 mg/dL (8.4-11.0); CREATININE 0.85 mg/dL (0.55-1.30); FREE T4 (FREE THYROXINE) 1.3 ng/dL (0.6-1.6); THYROID STIMULATING HORMONE 2.61 uIu/mL (0.34-4.82); TOTAL BILIRUBIN 0.5 mg/dL (0.0-1.0); TOTAL PROTEIN, SERUM 7.4 g/dL (6.4-8.3)
== END 2022-11-25 17:00 | disposition home or self-care (01) ==
LOC: SLB 07:46
PROVIDERS: ATTEND Internal Medicine
DX: I10 Essential (primary) hypertension (principal); E03.9 Hypothyroidism, unspecified; E55.9 Vitamin D deficiency, unspecified; J30.9 Allergic rhinitis, unspecified
CPT/HCPCS: 36415; 80053; 80061; 82306; 82607; 83037; 83735; 84439; 84443; 85025

== ENCOUNTER 2023-03-04 08:01 | Outpatient (CLI) | payer OTHER ==
[2023-03-04 09:11] LABS: EOSINOPHILS # (AUTO) 0.1 K/uL (0.0-0.4); EOSINOPHILS % (AUTO) 1.7 % (0.0-4.0); HEMATOCRIT 37.2 % (36-48); HEMOGLOBIN 13.1 g/dL (12.0-16.0); LYMPHOCYTES # (AUTO) 1.1 K/uL (1.0-5.5); LYMPHOCYTES % (AUTO) 32.5 % (20.5-51.5); MEAN CORPUSCULAR HEMOGLOBIN 31 pg (27-31); MEAN CORPUSCULAR HGB CONC 35 % (32-36); MEAN CORPUSCULAR VOLUME 89 fL (79.0-98.0); MONOCYTES # (AUTO) 0.3 K/uL (0.0-1.0); MONOCYTES % (AUTO) 8.8 % (1.7-9.3); NEUTROPHILS # (AUTO) 1.9 K/uL (1.8-7.7); PLATELET COUNT (AUTO) 245 K/uL (130-430); RED BLOOD CELL COUNT(AUTO) 4.18 MIL/uL (4.2-6.2); RED CELL DISTRIBUTION WIDTH 12.4 % (9.0-15.0); WHITE BLOOD COUNT (AUTO) 3.3 K/uL (4.8-10.8)
[2023-03-04 09:21] LABS: HEMOGLOBIN A1C 5.52 % (<5.7)
[2023-03-04 09:38] LABS: ALBUMIN 3.7 g/dL (3.4-4.8); CALCIUM 9.1 mg/dL (8.4-11.0); CREATININE 0.83 mg/dL (0.55-1.30); FREE T4 (FREE THYROXINE) 1.1 ng/dL (0.6-1.6); POTASSIUM 3.9 mmol/L (3.5-5.1); THYROID STIMULATING HORMONE 0.95 uIu/mL (0.34-4.82); TOTAL BILIRUBIN 0.4 mg/dL (0.0-1.0)
== END 2023-03-04 20:54 | disposition home or self-care (01) ==
LOC: SLB 08:01
PROVIDERS: ATTEND Internal Medicine
DX: I10 Essential (primary) hypertension (principal); E03.9 Hypothyroidism, unspecified; E78.5 Hyperlipidemia, unspecified; R73.9 Hyperglycemia, unspecified
CPT/HCPCS: 36415; 80053; 80061; 83037; 84439; 84443; 85025

== ENCOUNTER 2023-05-05 14:03 | Outpatient (CLI) | payer OTHER | END 2023-05-05 20:38 | disposition home or self-care (01) | LOC: SMI 14:03 | PROVIDERS: ATTEND Internal Medicine | DX: G31.9 Degenerative disease of nervous system, unspecified (principal); R51.9 Headache, unspecified | CPT/HCPCS: 70551 ==

== ENCOUNTER 2023-06-20 09:05 | Outpatient (CLI) | payer OTHER ==
[2023-06-20 09:44] LABS: BASOPHILS % (AUTO) 1.3 % (0.0-2.0); EOSINOPHILS # (AUTO) 0.1 K/uL (0.0-0.4); EOSINOPHILS % (AUTO) 2.5 % (0.0-4.0); HEMATOCRIT 37.6 % (36-48); HEMOGLOBIN 13.3 g/dL (12.0-16.0); LYMPHOCYTES # (AUTO) 1.1 K/uL (1.0-5.5); LYMPHOCYTES % (AUTO) 30.7 % (20.5-51.5); MEAN CORPUSCULAR HEMOGLOBIN 32 pg (27-31); MEAN CORPUSCULAR HGB CONC 35 % (32-36); MEAN CORPUSCULAR VOLUME 89 fL (79.0-98.0); MONOCYTES # (AUTO) 0.3 K/uL (0.0-1.0); MONOCYTES % (AUTO) 7.2 % (1.7-9.3); NEUTROPHILS % (AUTO) 58.3 % (40.0-70.0); PLATELET COUNT (AUTO) 254 K/uL (130-430); RED BLOOD CELL COUNT(AUTO) 4.21 MIL/uL (4.2-6.2); RED CELL DISTRIBUTION WIDTH 12.4 % (9.0-15.0); WHITE BLOOD COUNT (AUTO) 3.5 K/uL (4.8-10.8)
[2023-06-20 10:26] LABS: ALBUMIN 3.8 g/dL (3.4-4.8); CALCIUM 9.3 mg/dL (8.4-11.0); CREATININE 0.95 mg/dL (0.55-1.30); FREE T4 (FREE THYROXINE) 1.1 ng/dL (0.6-1.6); THYROID STIMULATING HORMONE 2.94 uIu/mL (0.34-4.82); TOTAL BILIRUBIN 0.4 mg/dL (0.0-1.0); TOTAL PROTEIN, SERUM 7.4 g/dL (6.4-8.3)
== END 2023-06-20 18:31 | disposition home or self-care (01) ==
LOC: SLB 09:05
PROVIDERS: ATTEND Internal Medicine
DX: I10 Essential (primary) hypertension (principal); E03.9 Hypothyroidism, unspecified; E55.9 Vitamin D deficiency, unspecified; E56.9 Vitamin deficiency, unspecified
CPT/HCPCS: 36415; 80053; 82306; 83735; 84439; 84443; 85025

== ENCOUNTER 2023-07-09 08:17 | Outpatient (CLI) | payer OTHER | END 2023-07-09 19:00 | disposition home or self-care (01) | LOC: SMA 08:17 | PROVIDERS: ATTEND Internal Medicine | DX: Z12.31 Encounter for screening mammogram for malignant neoplasm of breast (principal) | CPT/HCPCS: 77067 ==

== ENCOUNTER 2023-09-20 08:28 | Outpatient (CLI) | payer OTHER ==
[2023-09-20 10:03] LABS: BASOPHILS % (AUTO) 0.9 % (0.0-2.0); EOSINOPHILS # (AUTO) 0.1 K/uL (0.0-0.4); EOSINOPHILS % (AUTO) 2.2 % (0.0-4.0); HEMATOCRIT 39.5 % (36-48); HEMOGLOBIN 13.5 g/dL (12.0-16.0); LYMPHOCYTES # (AUTO) 1.1 K/uL (1.0-5.5); LYMPHOCYTES % (AUTO) 31.1 % (20.5-51.5); MEAN CORPUSCULAR HEMOGLOBIN 31 pg (27-31); MEAN CORPUSCULAR HGB CONC 34 % (32-36); MEAN CORPUSCULAR VOLUME 90 fL (79.0-98.0); MONOCYTES # (AUTO) 0.3 K/uL (0.0-1.0); MONOCYTES % (AUTO) 8.6 % (1.7-9.3); NEUTROPHILS # (AUTO) 1.9 K/uL (1.8-7.7); NEUTROPHILS % (AUTO) 57.2 % (40.0-70.0); PLATELET COUNT (AUTO) 245 K/uL (130-430); RED BLOOD CELL COUNT(AUTO) 4.41 MIL/uL (4.2-6.2); RED CELL DISTRIBUTION WIDTH 12.4 % (9.0-15.0); WHITE BLOOD COUNT (AUTO) 3.4 K/uL (4.8-10.8)
[2023-09-20 10:20] LABS: CALCIUM 9.6 mg/dL (8.4-11.0); CREATININE 0.94 mg/dL (0.55-1.30); FREE T4 (FREE THYROXINE) 1.1 ng/dl (0.8-1.5); POTASSIUM 4.3 mmol/L (3.5-5.1); THYROID STIMULATING HORMONE 2.33 uIu/mL (0.36-3.74); TOTAL BILIRUBIN 0.5 mg/dL (0.0-1.0); TOTAL PROTEIN, SERUM 7.5 g/dL (6.4-8.3)
[2023-09-20 11:24] LABS: HEMOGLOBIN A1C 5.7 % (<5.7)
== END 2023-09-20 18:53 | disposition home or self-care (01) ==
LOC: SLB 08:28
PROVIDERS: ATTEND Internal Medicine
DX: E03.9 Hypothyroidism, unspecified (principal); E55.9 Vitamin D deficiency, unspecified; M85.80 Other specified disorders of bone density and structure, unspecified site
CPT/HCPCS: 36415; 80053; 80061; 82306; 83037; 84439; 84443; 85025

== ENCOUNTER 2023-12-26 09:06 | Outpatient (CLI) | payer OTHER ==
[2023-12-26 10:28] LABS: BASOPHILS % (AUTO) 1.2 % (0.0-2.0); EOSINOPHILS # (AUTO) 0.1 K/uL (0.0-0.4); EOSINOPHILS % (AUTO) 2.9 % (0.0-4.0); HEMOGLOBIN 13.7 g/dL (12.0-16.0); LYMPHOCYTES % (AUTO) 31.5 % (20.5-51.5); MEAN CORPUSCULAR HEMOGLOBIN 30 pg (27-31); MEAN CORPUSCULAR HGB CONC 34 % (32-36); MEAN CORPUSCULAR VOLUME 89 fL (79.0-98.0); MONOCYTES # (AUTO) 0.2 K/uL (0.0-1.0); MONOCYTES % (AUTO) 7.6 % (1.7-9.3); NEUTROPHILS # (AUTO) 1.8 K/uL (1.8-7.7); NEUTROPHILS % (AUTO) 56.8 % (40.0-70.0); PLATELET COUNT (AUTO) 325 K/uL (130-430); RED BLOOD CELL COUNT(AUTO) 4.51 MIL/uL (4.2-6.2); RED CELL DISTRIBUTION WIDTH 12.8 % (9.0-15.0); WHITE BLOOD COUNT (AUTO) 3.1 K/uL (4.8-10.8)
[2023-12-26 11:10] LABS: HEMOGLOBIN A1C 5.32 % (<5.7)
[2023-12-26 11:29] LABS: ALBUMIN 4.1 g/dL (3.4-4.8); CALCIUM 9.2 mg/dL (8.4-11.0); CREATININE 0.85 mg/dL (0.55-1.30); POTASSIUM 4.4 mmol/L (3.5-5.1); THYROID STIMULATING HORMONE 0.56 uIu/mL (0.34-4.82); TOTAL BILIRUBIN 0.4 mg/dL (0.0-1.0); TOTAL PROTEIN, SERUM 7.5 g/dL (6.4-8.3)
== END 2023-12-26 19:14 | disposition home or self-care (01) ==
LOC: SLB 09:06
PROVIDERS: ATTEND Internal Medicine
DX: I10 Essential (primary) hypertension (principal); E78.5 Hyperlipidemia, unspecified; E03.9 Hypothyroidism, unspecified; E55.9 Vitamin D deficiency, unspecified
CPT/HCPCS: 36415; 80053; 80061; 83037; 84443; 85025